=== PATIENT | female | born 1980 | race Caucasian/White ===

== ENCOUNTER 2022-03-21 15:34 | Emergency (ER) | payer OTHER ==
[2022-03-21 16:41] LABS: HEMOGLOBIN 15.5 gm/dl (12.3-15.3); RED BLOOD COUNT 4.68 M/UL (4.00-5.10); WHITE BLOOD COUNT 10.3 K/UL (4.5-11.0)
[2022-03-21 17:01] LABS: BUN/CREATININE RATIO 17 (0-10)
[2022-03-21] MEDS ORDERED: IBUPROFEN600 MG PO (20:34)
== END 2022-03-21 20:38 | disposition home or self-care (01) ==
LOC: ER1 15:34
PROVIDERS: Emergency Medicine
DX: R10.9 Unspecified abdominal pain (principal); F17.200 Nicotine dependence, unspecified, uncomplicated; F15.90 Other stimulant use, unspecified, uncomplicated; Z87.442 Personal history of urinary calculi
CPT/HCPCS: 80053; 81001; 85025; 85652; 86140; 96374; 96375; 99284; J2270; J2405

== ENCOUNTER 2022-04-01 09:12 | Emergency (ER) | payer OTHER ==
[~2022-04-01 09:12] MED LIST: IBUPROFEN600 MG PO
[2022-04-01 10:43] LABS: HEMOGLOBIN 14.2 gm/dl (12.3-15.3); RED BLOOD COUNT 4.27 M/UL (4.00-5.10); WHITE BLOOD COUNT 9.2 K/UL (4.5-11.0)
[2022-04-01 11:23] LABS: BUN/CREATININE RATIO 18 (0-10)
[2022-04-01] MEDS ORDERED: OMNICEF 300 MG300 MG PO (13:22)
[2022-04-01] MEDS ORDERED: HYDROCODON-ACE1 EAC2 PO (13:22)
[2022-04-01] MEDS ORDERED: MACROBID 100 M100 MG PO (13:28)
[2022-04-01] MEDS ORDERED: IBUPROFEN600 MG PO (13:28)
== END 2022-04-01 13:40 | disposition home or self-care (01) ==
LOC: ER1 09:12
PROVIDERS: Emergency Medicine
DX: N13.2 Hydronephrosis with renal and ureteral calculous obstruction (principal); I10 Essential (primary) hypertension; F17.200 Nicotine dependence, unspecified, uncomplicated; Z88.0 Allergy status to penicillin
CPT/HCPCS: 80053; 81001; 83605; 83690; 85025; 87086; 93005; 96374; 96375; 99284; J1885; J2405; Q9967

== ENCOUNTER 2022-04-09 19:28 | Emergency (ER) | payer OTHER ==
[~2022-04-09 19:28] MED LIST changes: +HYDROCODON-ACE1 EAC2 PO; +MACROBID 100 M100 MG PO; +OMNICEF 300 MG300 MG PO
[2022-04-09 20:42] LABS: HEMOGLOBIN 13.9 gm/dl (12.3-15.3); RED BLOOD COUNT 4.17 M/UL (4.00-5.10); WHITE BLOOD COUNT 4.9 K/UL (4.5-11.0)
[2022-04-09 21:01] LABS: BUN/CREATININE RATIO 12 (0-10)
[2022-04-10] MEDS ORDERED: TORADOL 10 MG T10 MG PO (00:20)
== END 2022-04-10 00:35 | disposition home or self-care (01) ==
LOC: ER1 19:28
PROVIDERS: Family Medicine
DX: N20.1 Calculus of ureter (principal); F17.210 Nicotine dependence, cigarettes, uncomplicated
CPT/HCPCS: 80053; 81001; 83690; 84703; 85025; 96374; 96375; 99284; J1885; J2405; J2550; J7030

== ENCOUNTER 2022-04-12 00:58 | Emergency (ER) | payer OTHER ==
[~2022-04-12 00:58] MED LIST changes: +TORADOL 10 MG T10 MG PO
== END 2022-04-12 03:20 | disposition home or self-care (01) ==
LOC: ER1 00:58
DX: U07.1 COVID-19 (principal); F17.210 Nicotine dependence, cigarettes, uncomplicated; Z90.89 Acquired absence of other organs; Z90.710 Acquired absence of both cervix and uterus; Z88.0 Allergy status to penicillin
CPT/HCPCS: 99283; U0003

== ENCOUNTER 2022-04-16 21:01 | Emergency (ER) | payer OTHER | END 2022-04-17 02:06 | disposition left against medical advice (07) | LOC: ER1 21:01 | DX: Z53.21 Procedure and treatment not carried out due to patient leaving prior to being seen by health care provider (principal) ==

== ENCOUNTER 2022-05-01 01:42 | Emergency (ER) | payer OTHER ==
[2022-05-01] MEDS ORDERED: OMNICEF 300 MG300 MG PO (02:46)
== END 2022-05-01 03:00 | disposition home or self-care (01) ==
LOC: ER1 01:42
DX: N39.0 Urinary tract infection, site not specified (principal); I10 Essential (primary) hypertension; F17.210 Nicotine dependence, cigarettes, uncomplicated; Z20.822 Contact with and (suspected) exposure to COVID-19; Z87.442 Personal history of urinary calculi; Z88.0 Allergy status to penicillin
CPT/HCPCS: 81001; 87086; 99283; U0003

== ENCOUNTER → 2022-05-10 | Outpatient (CLI) | payer OTHER ==
[2022-05-11 07:12] LABS: HIV AB/P24 AG SCREEN Non Reactive (Non Reactive)
[2022-05-11 08:16] LABS: RPR Non Reactive (Non Reactive)
[2022-05-11 09:16] LABS: HBSAG SCREEN Negative (Negative); HCV ANTIBODY >11.0 (0.0-0.9); HEP A AB, IGM Negative (Negative); HEPATITIS B SURF AB QUANT 49.2 mIU/mL (Immunity>9.9)
[2022-05-11 22:07] LABS: HEPATITIS C QUANTITATION HCV Not Detected IU/mL (.)
[2022-05-13 01:07] LABS: ALT (SGPT) P5P 19 IU/L (0-40); APOLIPOPROTEIN A-1 160 mg/dL (116-209); BILIRUBIN, TOTAL 0.1 mg/dL (0.0-1.2); FIBROSIS SCORE 0.02 (0.00-0.21); GGT 18 IU/L (0-60); HAPTOGLOBIN 249 mg/dL (42-296); NECROINFLAMMAT ACTIVITY GRADE A0-No activity (.); NECROINFLAMMAT ACTIVITY SCORE 0.05 (0.00-0.17)
== END ==
LOC: LAB 06:47
PROVIDERS: Nurse Practitioner
DX: B19.20 Unspecified viral hepatitis C without hepatic coma (principal); N20.0 Calculus of kidney; F51.4 Sleep terrors [night terrors]; F41.1 Generalized anxiety disorder; R73.9 Hyperglycemia, unspecified; R53.83 Other fatigue
CPT/HCPCS: 36415; 80061; 81596; 82172; 82247; 82248; 82977; 83010; 83036; 84439; 84443; 84460; 85610; 86317; 86592; 86704; 86706; 86709; 86803; 87340; 87389; 87522; 87902